=== PATIENT | male | born 1970 | race Caucasian/White ===

== ENCOUNTER 2018-09-14 14:10 | Emergency (ER) | payer OTHER ==
[2018-09-14 14:32] VITALS: BP 141/94
--- NOTE | 2018-09-14 16:38 | ED Physician Documentation ---
History of Present Illness - Stated complaint Stated Complaint: BACK PX - Chief complaint Chief Complaint: Back Pain - History obtained from History obtained from: Patient - History of Present Illness Timing: Yesterday - Additonal information Additional information: Patient is a previously healthy 48-year-old male presenting with right-sided thoracic back discomfort without particular inciting incident, fall, or trauma. Patient does report regular heavy lifting at his job however. Patient denies overlying skin changes or rash. Patient also denies lower back pain, abdominal pain, urinary changes, stool changes, fever, nausea, vomiting or other complaints. No other improving or worsening factors noted. Review of Systems Constitutional: denies: Fever GI: denies: Abdominal Pain, Nausea, Vomiting, Diarrhea : denies: Dysuria Skin: denies: Rash Musculoskeletal: denies: Back pain PD PAST MEDICAL HISTORY - Past Medical History Past Medical History: No - Past Surgical History Past Surgical History: No - Allergies Allergies/Adverse Reactions: Allergies Allergy/AdvReac Type Severity Reaction Status Date / Time No Known Drug Allergies Allergy Verified 09/14/18 14:32 - Social History Does the pt smoke?: Yes Smoking Status: Heavy tobacco smoker PD ED PE NORMAL - Vitals Vital signs reviewed: Yes - General General: Alert and oriented X 3, No acute distress, Well developed/nourished - HEENT HEENT: Atraumatic, Moist mucous membranes - Neck Neck: No bony TTP - Respiratory Respiratory: No respiratory distress - Back Back: No spinal TTP, Other (No significant reproducible tenderness or muscle spasm to paraspinal thoracic musculature) - Derm Derm: Normal color, Warm and dry, No rash - Extremities Extremities: No deformity, No tenderness to palpate - Neuro Neuro: Alert and oriented X 3, No motor deficit, No sensory deficit - Psych Psych: Normal mood, Normal affect Results - Vitals Vitals: Vital Signs - 24 hr 09/14/18 14:29 Temperature 36.9 C Heart Rate 84 Respiratory 16 Rate Blood Pressure 141/94 H O2 Saturation 99 Oxygen O2 Source Room air PD MEDICAL DECISION MAKING - ED course Complexity details: considered differential, d/w patient ED course: Patient was likely experiencing musculoskeletal strain. Do not find evidence of cellulitis, abscess, shingles or other infectious pathology. Have lower suspicion for pyelonephritis, nephrolithiasis, UTI or other intra-abdominal pathology, although considered. Do not feel patient requires invasive testing at this time. Offered Toradol, which was declined. Otherwise discussed other supportive cares, return precautions, appropriate follow-up. Patient voiced understanding and is comfortable with discharge plan. Departure - Departure Disposition: 01 Home, Self Care Clinical Impression: Back pain Qualifiers: Back pain location: thoracic back pain Chronicity: acute Back pain laterality: right Qualified Code(s): M54.6 - Pain in thoracic spine Condition: Good Instructions: ED Low Back Pain Injury Follow-Up: Felix Castellano MD [Primary Care Provider] - Within 3 Days Comments: Recommend stretching, massage, heat application and use of ibuprofen/Tylenol as needed. Please follow-up with primary care physician in next 2 to 3 days and return to ED sooner if experience worsening symptoms or have other concerns.
== END 2018-09-14 17:21 | disposition home or self-care (01) ==
LOC: ED 14:10
DX: M54.6 Pain in thoracic spine (principal); F17.200 Nicotine dependence, unspecified, uncomplicated
CPT/HCPCS: 99282

== ENCOUNTER 2019-07-19 12:32 | Outpatient (CLI) | payer OTHER | END 2019-07-19 12:33 | disposition home or self-care (01) | LOC: LAB 12:32 | PROVIDERS: ATTEND Family Medicine | DX: B34.9 Viral infection, unspecified (principal); Z20.828 Contact with and (suspected) exposure to other viral communicable diseases | CPT/HCPCS: 81599 ==

== ENCOUNTER 2021-01-20 09:11 | Day surgery (SDC) | payer OTHER ==
[2021-01-20] MEDS ORDERED: LACTATED RINGERS 1,000 ML IV ONE ×2 (09:41→10:10)
--- NOTE | 2021-01-20 09:48 | ANESTHESIA ---
Pre-Anesthesia VS, & Labs - Diagnosis screening - Procedure colonoscopy w/biopsies Vital Signs: Temp Pulse Resp BP Pulse Ox 36.4 C L 85 16 139/99 H 96 01/20/21 09:34 01/20/21 09:34 01/20/21 09:34 01/20/21 09:34 01/20/21 09:34 Height: 6 ft Weight (kg): 80.4 kg Body Mass Index: 24.0 BMI Classification: Healthy weight - NPO >8 hours - Lab Results Lab results reviewed: Yes Home Medications and Allergies Home Medications: Ambulatory Orders Venlafaxine HCl [Effexor Xr] 150 mg PO DAILY 01/19/21 Venlafaxine HCl [Effexor Xr] 150 mg PO DAILY 01/19/21 Allergies/Adverse Reactions: Allergies Allergy/AdvReac Type Severity Reaction Status Date / Time No Known Drug Allergies Allergy Verified 09/14/18 14:32 Anes History & Medical History - Medical History Cardiovascular: reports: None Pulmonary: reports: None Gastrointestinal: reports: None Urinary: reports: None Musculoskeletal: reports: None Endocrine/Autoimmune: reports: None Smoking Status: Heavy tobacco smoker Exam General: Alert, Oriented x3, Cooperative Dental: WNL Mouth Openin Fingerbreadth Neck Mobility: Normal Mallampati classification: II Thyromental Distance: 4-6 cm Respiratory: Lungs clear, Normal breath sounds, No respiratory distress Cardiovascular: Regular rate Neurological: Normal speech Mental/Cognitive Status: Alert/Oriented X3, Normal for patient Plan Anesthesia Type: Total IV Consent for Procedure(s) Verified and Reviewed: Yes Code Status: Attempt Resuscitation ASA classification: 2-Mild systemic disease Is this case an emergency?: No
[2021-01-20] MEDS ORDERED: LIDOCAINE-MPF 2% 5 ML VIAL ONE (09:58)
[2021-01-20] MEDS ORDERED: PROPOFOL 200 MG/20 ML VIAL IVP ONE (10:09)
[2021-01-20 10:33] VITALS: BP 108/68
--- NOTE | 2021-01-20 10:43 | ANESTHESIA POST OP EVALUATION ---
Anesthesia Post Eval - Post Anesthesia Eval Vitals: Last Vital Signs Temp 36.6 C 01/20/21 10:30 Pulse 82 01/20/21 10:30 Resp 16 01/20/21 10:30 BP 108/68 01/20/21 10:30 Pulse Ox 99 01/20/21 10:30 CV Function Including HR & BP: Stable Pain Control: Satisfactory Nausea & Vomiting: Negative Mental Status: Baseline Respiratory Status: Airway Patent Hydration Status: Satisfactory Anesthesia Complications: None
== END 2021-01-20 09:12 | disposition home or self-care (01) ==
LOC: SDS 09:11
PROVIDERS: ATTEND Surgery
PROC: 0DBN8ZX Excision of Sigmoid Colon, Via Natural or Artificial Opening Endoscopic, Diagnostic (ICD-10-PCS; principal; 2021-01-20 10:00)
DX: Z12.11 Encounter for screening for malignant neoplasm of colon (principal); K63.5 Polyp of colon; K57.30 Diverticulosis of large intestine without perforation or abscess without bleeding; K64.8 Other hemorrhoids; Z80.0 Family history of malignant neoplasm of digestive organs; Z83.71 Family history of colonic polyps; Z87.891 Personal history of nicotine dependence
CPT/HCPCS: 45380; J7120

== ENCOUNTER 2023-07-15 01:14 | Outpatient (CLI) | payer OTHER | END 2023-07-15 23:59 | disposition EMS.NT | LOC: EMS 01:14 | DX: M54.50 Low back pain, unspecified (principal); M79.605 Pain in left leg; M79.604 Pain in right leg; R20.0 Anesthesia of skin ==

== ENCOUNTER 2023-08-17 13:33 | Outpatient (CLI) | payer MEDICAID ==
--- NOTE | 2023-08-17 14:46 | XRAY Report ---
PROCEDURE: Lumbar Spine 2-3V INDICATIONS: SCIATICA,RIGHT TECHNIQUE: 2 views of the lumbar spine were acquired. COMPARISON: None. FINDINGS: Surgical change: None. Bones: 5 [id number] vertebrae are present. Grade 1 anterolisthesis of L4 on L5. No vertebral gabby dy compression fractures. No suspicious bony lesions. There are multilevel degenerative changes of t he lumbar spine with facet arthropathy and disc height loss with degenerative endplate changes and ma rginal spurring. Soft tissues: Overlying bowel gas pattern is normal. No suspicious soft tissue calcifications. Ath erosclerotic vascular opacifications. IMPRESSION: Multilevel degenerative changes of the lumbar spine. Reviewed by: Louie Sutherland MD on 08/17/2023 2:44 PM PDT Approved by: Louie Sutherland MD on 08/17/2023 2:44 PM PDT Station ID: [id number]
== END 2023-08-17 13:34 | disposition home or self-care (01) ==
LOC: DI.S 13:33
PROVIDERS: ATTEND Nurse Practitioner Gerontology
DX: M47.816 Spondylosis without myelopathy or radiculopathy, lumbar region (principal); M43.16 Spondylolisthesis, lumbar region